=== PATIENT | male | born 2000 | race African-American/Black ===

== ENCOUNTER 2019-11-09 22:06 | Emergency (ER) | payer SELFPAY ==
[2019-11-10] MEDS ORDERED: Bupivacaine 0.5% 10 ML SDV INJECT ONE (00:29)
[2019-11-10] MEDS ORDERED: Lidocaine 1% 10 ML MDV INJECT ONE (00:29)
[2019-11-10] MEDS ORDERED: Penicillin V Potassium 500 MG Tab PO STA (00:33)
--- NOTE | 2019-11-10 00:47 | EDM.PDOC ---
ED HPI GENERAL MEDICAL PROBLEM - General Chief Complaint: ENT Problem Stated Complaint: TOOTH PAIN Time Seen by Provider: 11/10/19 00:10 Source of Information: Reports: Patient History Limitations: Reports: No Limitations - History of Present Illness INITIAL COMMENTS - FREE TEXT/NARRATIVE: Mr. Howe is a very pleasant 19-year-old man with no medical issues and no past surgical history, who now presents to the ED stating that a right upper molar was "wiggly" therefore he removed it on his own about 6 weeks ago. Time, he states that it was painless. He then developed pain to the area about 3 days ago, and swelling to the area, as well as to his face, about 2 days ago. No throat or ear pain. No recent fever. He has not noticed any oral drainage. The patient has been swishing with salt water, and taking glyr-cbm-[id number] ibuprofen. Here in the ED, the patient is found to be hemodynamically stable, afebrile, with a normal oxygen saturation on room air. The patient states that he drove himself here. The patient does not have a PCP. He did not receive an influenza vaccine this season, but agreed to receive one here today. - Related Data Allergies Allergy/AdvReac Type Severity Reaction Status Date / Time No Known Allergies Allergy Verified 11/09/19 22:46 Home Meds: Home Meds Acetaminophen/HYDROcodone [[place] 325-5 MG] 1 - 2 tab PO Q6H PRN #12 tablet 11/09 [Rx] Penicillin V Potassium 1 tab PO Q6HR #40 tab 11/10/19 [Rx] Past Medical History - Past Health History Medical/Surgical History: Denies Medical/Surgical History Social & Family History - Tobacco Use Smoking Status *Q: Current Every Day Smoker Tobacco Use Within Last Twelve Months: Vaping (nicotine) Years of Tobacco use: 1 Packs/Tins Daily: 0.1 - Caffeine Use Caffeine Use: Reports: Coffee, Energy Drinks - Alcohol Use Alcohol Use History: No - Recreational Drug Use Recreational Drug Use: No - Living Situation & Occupation Living situation: Reports: Single, Other (Friends) Occupation: Employed ([employer]) ED ROS ENT - Review of Systems Review Of Systems: Comprehensive ROS is negative, except as noted in HPI. ED EXAM, ENT - Physical Exam Exam: See Below Exam Limited By: No Limitations General Appearance: Alert, WD/WN, No Apparent Distress Eye Exam: Bilateral Eye: EOMI, Normal Inspection Ears: Normal External Exam, Normal Canal, Hearing Grossly Normal, Normal TMs Nose: Normal Inspection, Normal Mucousa, No Blood Mouth/Throat: Normal Lips, Normal Oropharynx, Other (Tooth #3 absent nurses decayed below the gingiva. There is associated swelling and pointing of the buccal aspect of the gingiva) Head: Atraumatic, Facial Swelling (over right maxilla), Facial Tenderness (to swelling over right maxilla) Neck: Normal Inspection, Supple, Non-Tender, Full Range of Motion. No: Lymphadenopathy (L), Lymphadenopathy (R) ED I&D PROCEDURES - I&D Site: Periodontal abscess on gingiva adjacent to tooth #3 Local anesthesia - Lidocaine (Xylocaine): 1% Plain (50:50 admixture) Local Anesthesia - Bupivicaine (Marcaine): 0.5% Plain (50:50 admixture) Local Anesthetic Volume: Other (< 1 ml) Area Incised With: 11 Blade Drainage: Purulent, Large Amount Probed to Break Up Loculations: No Packed With: None Sterile Dressing: None Complications: No Course - Vital Signs Last Recorded V/S: Last Vital Signs Temp 37.4 C 11/09/19 22:49 Pulse 72 11/09/19 22:49 Resp 20 11/09/19 22:49 BP 134/81 11/09/19 22:49 Pulse Ox 99 11/09/19 22:49 - Orders/Labs/Meds Orders: Active Orders 24 hr Category Date Time Status Influenza Vaccine Charge [RC] .DISCHARGE Care 11/10/19 00:30 Active Meds: Medications Discontinued Medications Generic Name Dose Route Start Last Admin Trade Name Ulysses PRN Reason Stop Dose Admin Bupivacaine HCl 10 ml 11/10/19 00:29 11/10/19 01:04 Sensorcaine-Mpf 0.5% INJECT 11/10/19 00:30 10 ml ONETIME ONE Administration Influenza Virus Vaccine 1 each 11/10/19 00:29 Pharmacy To Dose - Influenza Vaccine IM 11/10/19 00:30 ONETIME ONE Influenza Virus Vaccine 60 mcg 11/10/19 01:00 11/10/19 01:05 Fluzone Quad [id number] Syringe IM 11/10/19 01:01 60 mcg .ONCE ONE Administration Lidocaine HCl 10 ml 11/10/19 00:29 11/10/19 01:03 Xylocaine 1% INJECT 11/10/19 00:30 10 ml ONETIME ONE Administration Naproxen 500 mg 11/10/19 00:50 11/10/19 01:04 Naprosyn PO 11/10/19 00:51 500 mg ONETIME STA Administration Penicillin V Potassium 500 mg 11/10/19 00:33 11/10/19 01:04 Veetids PO 11/10/19 00:34 500 mg ONETIME STA Administration - Re-Assessments/Exams Free Text/Narrative Re-Assessment/Exam: 11/10/19 00:33 The patient has a periodontal abscess associated with tooth #3. I will perform an I&D, and start the patient on oral penicillin. 11/10/19 00:51 A 50:50 admixture of lidocaine 1% without epinephrine and bupivacaine 0.5% without epinephrine was locally injected, with good anesthetic effect. Procedural assistance was given by Nicole CHRIS, who held the patient's lip back and applied suction. Using a #11 scalpel, an I&D was performed on the periodontal abscess, with a large amount of pus expressed. The area was pressed until only blood came out. The patient was then asked to swish and spit. He tolerated the procedure well. The patient will be started on oral penicillin, and he will be given naproxen here in the ED, however, because he drove himself here, he cannot be given an opioid here in the ED. I will discharge him home with prescriptions for penicillin VK and [place]. He will be provided with a list of local dentists. The patient will be given an influenza vaccine prior to discharge. Departure - Departure Time of Disposition: 00:55 Disposition: Home, Self-Care 01 Condition: Good Clinical Impression: Periodontal abscess - Discharge Information *PRESCRIPTION DRUG MONITORING PROGRAM REVIEWED*: Not Applicable *COPY OF PRESCRIPTION DRUG MONITORING REPORT IN PATIENT JENNIE: Not Applicable Prescriptions: Penicillin V Potassium 1 tab PO Q6HR #40 tab Acetaminophen/HYDROcodone [[place] 325-5 MG] 1 - 2 tab PO Q6H PRN #12 tablet PRN Reason: Pain (Severe 7-10) Instructions: Dental Abscess, [id number] Referrals: PCP,None [Primary Care Provider] - Forms: ED Department Discharge Additional Instructions: You were seen in the emergency room after developing pain and swelling to your upper right gum and the right side of your face. Based on your history and physical examination, you were found to have a periodontal abscess. An incision and drainage of the periodontal abscess was performed in the ER, recovering a large amount of pus. We recommend that you swish and spit with warm salt water several times a day. You have been started on the antibiotic penicillin, and a prescription for penicillin has been provided to you. Take 1 tablet of penicillin every 6 hours , as prescribed. Finish the entire prescription unless told otherwise by a dentist. We recommend that you take [id number] ibuprofen, 3 tablets (600 mg) every 8 hours, with food, [id number]. A prescription for the opioid pain reliever [place] has been provided to you. You may take 1 to 2 tablets of [place] up to every 6 hours, as needed for pain not relieved by ibuprofen. If you take B[place], do not drive or operate heavy machinery for 12 hours after taking. B[place] may cause constipation, so consider taking a stool softener. A list of local dentists has been provided to you. It is very important that you follow-up with a dentist within 10 days. If any other problems, please do not hesitate to return to the ER. *You were given an influenza vaccine during your ER visit.* Sepsis Event Note - Evaluation Sepsis Screening Result: No Definite Risk - Focused Exam Date Exam was Performed: 11/11/19 Time Exam was Performed: 00:03 - My Orders Last 24 Hours: My Active Orders 11/10/19 00:30 Influenza Vaccine Charge [RC] .DISCHARGE - Assessment/Plan Last 24 Hours: My Active Orders 11/10/19 00:30 Influenza Vaccine Charge [RC] .DISCHARGE
[2019-11-10] MEDS ORDERED: Naproxen 500 MG Tab PO STA (00:50)
[2019-11-10] MEDS ORDERED: FLU Vacc QS2019-20(6MOS+)/PF 60 MCG/0.5 ML SYRINGE IM ONE (01:00)
== END 2019-11-10 01:18 | disposition home or self-care (01) ==
LOC: JD.ED 22:06
DX: K05.219 Aggressive periodontitis, localized, unspecified severity (principal); F17.210 Nicotine dependence, cigarettes, uncomplicated; Z23 Encounter for immunization
CPT/HCPCS: 41800; 90471; 90686; 99282; A9270; J2001; J3490; 10060; 99283; G0008